=== PATIENT | female | born 1985 | race African-American/Black ===

== ENCOUNTER 2016-07-11 10:28 | Emergency (ER) | payer OTHER ==
--- NOTE | 2016-07-11 12:27 | EDDOCDS ---
Physician Documentation [facility] Name: Leonard Rodriguez Age: 31 yrs Sex: Female : 1985 Arrival Date: 07/11/2016 Time: 10:28 Bed TR3 Private MD: Amy [facility] [place] Disposition: 07/11/16 12:10 Discharged to Home/Self Care. Impression: Labyrinthitis, Elevated blood-pressure reading, without diagnosis of hypertension. - Condition is Stable. - Discharge Instructions: Labyrinthitis, Rqwn-tg-Elvt, Hypertension During , Ztma-ru-Ehmj. - Medication Reconciliation, Local Pharmacy Hours form. - Follow up: Thomas Cespedes, OB; When: Call to arrange an appointment; Reason: Further diagnostic work-up, Recheck today's complaints, Continuance of care. - Problem is new. - Symptoms are unchanged. Historical: - Allergies: No known drug Allergies; - Home Meds: 1. Oral 1 tablet daily 2. Prilosec Unknown Oral once daily as needed - PMHx: Hypertension; - PSHx: left knee repair; - Social history: Smoking status: Patient states was never smoker of tobacco. No barriers to communication noted, The patient speaks fluent Vietnamese. - Family history: Not pertinent. - : The pt / caregiver states he / she is not on anticoagulants. Home medication list is obtained from the patient. - Exposure Risk Screening:: None identified. 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 3 in. (160.02 cm) (R); 11:28 BP 144 / 94 (man/); dwg 12:14 BP 139 / 90 (man/); Pulse 77; Resp 18; Temp 98.9(TE); Pulse Ox 98% on R/A; Pain 5/10; mdr 10:30 Body Mass Index 33.66 (86.18 kg, 160.02 cm) elp MDM: 11:02 Recheck B/P ordered. btw 11:51 Financial registration complete. lg Signatures: Molly Espinosa RN RN Latha Clark RN RN kpj Ganter, LoriLee, Julien Reg lg Trever Isabel PA PA btw MTDD
--- NOTE | 2016-07-11 12:27 | EDDOCDS ---
Nurse's Notes [facility] Name: Leonard Rodriguez Age: 31 yrs Sex: Female : 1985 Arrival Date: 07/11/2016 Time: 10:28 Bed TR3 Private MD: [place] [facility] [place]: Labyrinthitis;Elevated blood-pressure reading, without diagnosis of hypertension Presentation: 07/11 10:42 Presenting complaint: Patient states: she saw her medic this am for not feeling good - kcs had a nose bleed and her BP was high - now has a headache and feels dizzy. 14 weeks . Adult Sepsis Screening: The patient does not have new or worsening altered mentation. Patient's respiratory rate is less than 22. Systolic blood pressure is greater than 100. Patient has a qSOFA score of 0- Negative Sepsis Screen. Suicide/Homicide risk assessment- the patient denies having any suicidal and/or homicidal ideations and does not present with any other emotional, behavioral or mental health complaints. 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 Transition of care: patient was not received from another setting of care. 10:42 Acuity: KOMAL Level 3 kcs 10:42 Method Of Arrival: Walkin/Carried/Asstd kcs Triage Assessment: 10:44 General: Appears uncomfortable, well developed, well nourished, well groomed, Behavior kcs is cooperative, pleasant. Pain: Location: entire head Pain currently is 5 out of 10 on a pain scale. HIV screening NA for this visit active duty . Neurological: Level of Consciousness is awake, alert. Respiratory: Airway is patent Respiratory effort is even, unlabored, Respiratory pattern is regular, symmetrical. Derm: Skin is intact, is healthy with good turgor, Skin is dry, Skin is black. CLINICAL REHABILITATION LIAISON: 10:44 3, Full Term 2, Premature 0, 0, Living 2, LMP 04/03/2016 kcs Historical: - Allergies: No known drug Allergies; - Home Meds: 1. Oral 1 tablet daily 2. Prilosec Unknown Oral once daily as needed - PMHx: Hypertension; - PSHx: left knee repair; - Social history: Smoking status: Patient states was never smoker of tobacco. No barriers to communication noted, The patient speaks fluent Ivorian. - Family history: Not pertinent. - : The pt / caregiver states he / she is not on anticoagulants. Home medication list is obtained from the patient. - Exposure Risk Screening:: None identified. Screenin:23 Screening information is obtained from the patient. Fall risk: No risks identified. kpj Assistance ADL's: requires no assistance with activities of daily living. Abuse/DV Screen: The patient / caregiver reports he/she is: not in a situation that causes fear, pain or injury. Nutritional screening: No deficits noted. Advance Directives: Currently, there is no health care proxy. There is no active DNR order. There is no living will. There is no Power of Civil Engineering Professor. Advance directive information has not previously been placed in an [facility] medical record. Further advance directive information is declined. home support is adequate. Assessment: 12:23 General: Appears in no apparent distress, well nourished, well groomed, Behavior is kpj appropriate for age, pleasant. Pain: Denies pain. Neurological: Level of Consciousness is awake, alert, Oriented to person, place, time, Reports headache. EENT: Reports nasal congestion. Cardiovascular: Chest pain is denied. Respiratory: Airway is patent Respiratory effort is even, unlabored, Respiratory pattern is regular, symmetrical. GI: No deficits noted. : Denies cramping discharge, pain vaginal bleeding. Derm: Skin is pink, warm & dry. Vital Signs: 10:30 BP 152 / 90; Pulse 91; Resp 18; Temp 97.0(O); Pulse Ox 99% on R/A; Weight 86.18 kg (R); elp Height 5 ft. 3 in. (160.02 cm) (R); 11:28 BP 144 / 94 (man/); dwg 12:14 BP 139 / 90 (man/); Pulse 77; Resp 18; Temp 98.9(TE); Pulse Ox 98% on R/A; Pain 5/10; mdr 10:30 Body Mass Index 33.66 (86.18 kg, 160.02 cm) [facility] Vitals: 10:30 Log In Time: July 11, 2016 at 10:28. elp 10:31 RN notified that patient meets Red Flag criteria. [facility] ED Course: 10:29 Patient visited by Debi Decker PCA. elp 10:29 Patient moved to Waiting elp 10:30 ROGELIO Reyes is Private Physician. elp 10:31 Patient visited by Debi Decker PCA. elp 10:31 Patient moved to Pre RCE elp 10:43 Triage Initiated kcs 11:24 Patient moved to Triage 2 mdr 11:38 Trever Isabel [facility]. btw 11:38 Jennifer Johns MD is Attending Physician. btw 11:50 Patient visited by Trever Isabel PA. btw 12:10 Thomas Cespedes OB is Referral Physician. btw 12:19 Patient visited by Shaheen Conner PCA. mdr 12:22 Patient moved to TR3 [facility] 12:23 Resting quietly. kpj 12:23 The patient / caregiver is instructed regarding the plan of care and ED course. Patient [facility] has correct armband on for positive identification. 12:23 No IV's were initiated during this patient's visit. No procedures done that require kpj assistance. Order Results: There are currently no results for this order. Outcome: 12:10 Discharge ordered by Provider. btw 12:23 Discharge Assessment: Patient awake, alert and oriented x 3. No cognitive and/or kpj functional deficits noted. Patient verbalized understanding of disposition instructions. patient administered narcotics - no. The following High Risk Discharge criteria are identified: None. Discharged to home ambulatory, with significant other. Condition: stable. Discharge instructions given to patient, Instructed on discharge instructions, follow up and referral plans. diet, Demonstrated understanding of instructions, Pt was receptive of discharge instructions/ teaching. No special radiology studies were completed. Property sent home with patient. 12:26 Patient left the ED. [facility] Signatures: Molly Espinosa RN RN kcs Greene, Daniel, RN RN dwg Jobson, Karen, RN RN [facility] Trever Isabel PA PA btw Debi Decker PCA SUPERVISOR SILVERING DEPARTMENT elp Shaheen Conner PCA PCA mdr Corrections: (The following items were deleted from the chart) 10:46 10:42 Presenting complaint: Patient states: she saw her medic this am for not feeling kcs good - had a nose bleed and her BP was high - now has a headache and feels dizzy. kcs MTDD
--- NOTE | 2016-07-13 13:27 | EDDOCDS ---
Physician Documentation [facility] Name: Leonard Rodriguez Age: 31 yrs Sex: Female : 1985 Arrival Date: 07/11/2016 Time: 10:28 Bed TR3 Private MD: Amy [facility] [place] Disposition: 07/11/16 12:10 Discharged to Home/Self Care. Impression: Labyrinthitis, Elevated blood-pressure reading, without diagnosis of hypertension. - Condition is Stable. - Discharge Instructions: Labyrinthitis, Vjft-fn-Eohl, Hypertension During , Pexd-ls-Cwfa. - Medication Reconciliation, Local Pharmacy Hours form. - Follow up: Thomas Cespedes, OB; When: Call to arrange an appointment; Reason: Further diagnostic work-up, Recheck today's complaints, Continuance of care. - Problem is new. - Symptoms are unchanged. Historical: - Allergies: No known drug Allergies; - Home Meds: 1. Oral 1 tablet daily 2. Prilosec Unknown Oral once daily as needed - PMHx: Hypertension; - PSHx: left knee repair; - Social history: Smoking status: Patient states was never smoker of tobacco. No barriers to communication noted, The patient speaks fluent Welsh. - Family history: Not pertinent. - : The pt / caregiver states he / she is not on anticoagulants. Home medication list is obtained from the patient. - Exposure Risk Screening:: None identified. 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 3 in. (160.02 cm) (R); 11:28 BP 144 / 94 (man/); dwg 12:14 BP 139 / 90 (man/); Pulse 77; Resp 18; Temp 98.9(TE); Pulse Ox 98% on R/A; Pain 5/10; mdr 10:30 Body Mass Index 33.66 (86.18 kg, 160.02 cm) elp MDM: 11:02 Recheck B/P ordered. btw 11:51 Financial registration complete. lg 12:34 [facility] Payment Agreement was scanned into [employer] and attached to record. lg 15:01 T-Sheet-- Draft Copy was scanned into [employer] and attached to record. gb Signatures: Molly Espinosa RN Latha López RN RN kpj Barnhardt, Gloria, Reg Reg gb Parish Pepe, Reg Reg lg Trever Isabel PA PA btw The chart was reviewed and I authenticate all verbal orders and agree with the evaluation and treatment provided.Attachments: 12:34 [facility] Payment Agreement lg 15:01 T-Sheet-- Draft Copy gb Chart Complete MTDD
--- NOTE | 2016-07-13 13:27 | EDDOCDS ---
Physician Documentation [facility] Name: Leonard Rodriguez Age: 31 yrs Sex: Female : 1985 Arrival Date: 07/11/2016 Time: 10:28 Bed TR3 Private MD: Amy [facility] [place] Disposition: 07/11/16 12:10 Discharged to Home/Self Care. Impression: Labyrinthitis, Elevated blood-pressure reading, without diagnosis of hypertension. - Condition is Stable. - Discharge Instructions: Labyrinthitis, Suvs-ad-Alzu, Hypertension During , Twze-ln-Jjhm. - Medication Reconciliation, Local Pharmacy Hours form. - Follow up: Thomas Cespedes, OB; When: Call to arrange an appointment; Reason: Further diagnostic work-up, Recheck today's complaints, Continuance of care. - Problem is new. - Symptoms are unchanged. Historical: - Allergies: No known drug Allergies; - Home Meds: 1. Oral 1 tablet daily 2. Prilosec Unknown Oral once daily as needed - PMHx: Hypertension; - PSHx: left knee repair; - Social history: Smoking status: Patient states was never smoker of tobacco. No barriers to communication noted, The patient speaks fluent Turkmen. - Family history: Not pertinent. - : The pt / caregiver states he / she is not on anticoagulants. Home medication list is obtained from the patient. - Exposure Risk Screening:: None identified. 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 3 in. (160.02 cm) (R); 11:28 BP 144 / 94 (man/); dwg 12:14 BP 139 / 90 (man/); Pulse 77; Resp 18; Temp 98.9(TE); Pulse Ox 98% on R/A; Pain 5/10; mdr 10:30 Body Mass Index 33.66 (86.18 kg, 160.02 cm) elp MDM: 11:02 Recheck B/P ordered. btw 11:51 Financial registration complete. lg 12:34 [facility] Payment Agreement was scanned into [employer] and attached to record. lg 15:01 T-Sheet-- Draft Copy was scanned into [employer] and attached to record. gb Signatures: Molly Espinosa RN Latha López RN RN kpj Barnhardt, Gloria, Reg Reg gb Parish Pepe, Reg Reg lg Trever Isabel PA PA btw The chart was reviewed and I authenticate all verbal orders and agree with the evaluation and treatment provided.Attachments: 12:34 [facility] Payment Agreement lg 15:01 T-Sheet-- Draft Copy gb Chart Complete MTDD
--- NOTE | 2016-07-13 13:27 | EDDOCDS ---
Nurse's Notes [facility] Name: Leonard Rodriguez Age: 31 yrs Sex: Female : 1985 Arrival Date: 07/11/2016 Time: 10:28 Bed TR3 Private MD: Amy [facility] [place] Diagnosis: Labyrinthitis;Elevated blood-pressure reading, without diagnosis of hypertension Presentation: 07/11 10:42 Presenting complaint: Patient states: she saw her medic this am for not feeling good - kcs had a nose bleed and her BP was high - now has a headache and feels dizzy. 14 weeks . Adult Sepsis Screening: The patient does not have new or worsening altered mentation. Patient's respiratory rate is less than 22. Systolic blood pressure is greater than 100. Patient has a qSOFA score of 0- Negative Sepsis Screen. Suicide/Homicide risk assessment- the patient denies having any suicidal and/or homicidal ideations and does not present with any other emotional, behavioral or mental health complaints. 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 Transition of care: patient was not received from another setting of care. 10:42 Acuity: KOMAL Level 3 kcs 10:42 Method Of Arrival: Walkin/Carried/Asstd kcs Triage Assessment: 10:44 General: Appears uncomfortable, well developed, well nourished, well groomed, Behavior kcs is cooperative, pleasant. Pain: Location: entire head Pain currently is 5 out of 10 on a pain scale. HIV screening NA for this visit active duty . Neurological: Level of Consciousness is awake, alert. Respiratory: Airway is patent Respiratory effort is even, unlabored, Respiratory pattern is regular, symmetrical. Derm: Skin is intact, is healthy with good turgor, Skin is dry, Skin is black. 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 Oral 1 tablet daily 2. Prilosec Unknown Oral once daily as needed - PMHx: Hypertension; - PSHx: left knee repair; - Social history: Smoking status: Patient states was never smoker of tobacco. No barriers to communication noted, The patient speaks fluent Kazakh. - Family history: Not pertinent. - : The pt / caregiver states he / she is not on anticoagulants. Home medication list is obtained from the patient. - Exposure Risk Screening:: None identified. Screenin:23 Screening information is obtained from the patient. Fall risk: No risks identified. kpj Assistance ADL's: requires no assistance with activities of daily living. Abuse/DV Screen: The patient / caregiver reports he/she is: not in a situation that causes fear, pain or injury. Nutritional screening: No deficits noted. Advance Directives: Currently, there is no health care proxy. There is no active DNR order. There is no living will. There is no Power of Bad Credit Collector. Advance directive information has not previously been placed in an [facility] medical record. Further advance directive information is declined. home support is adequate. Assessment: 12:23 General: Appears in no apparent distress, well nourished, well groomed, Behavior is kpj appropriate for age, pleasant. Pain: Denies pain. Neurological: Level of Consciousness is awake, alert, Oriented to person, place, time, Reports headache. EENT: Reports nasal congestion. Cardiovascular: Chest pain is denied. Respiratory: Airway is patent Respiratory effort is even, unlabored, Respiratory pattern is regular, symmetrical. GI: No deficits noted. : Denies cramping discharge, pain vaginal bleeding. Derm: Skin is pink, warm & dry. Vital Signs: 10:30 BP 152 / 90; Pulse 91; Resp 18; Temp 97.0(O); Pulse Ox 99% on R/A; Weight 86.18 kg (R); elp Height 5 ft. 3 in. (160.02 cm) (R); 11:28 BP 144 / 94 (man/); dwg 12:14 BP 139 / 90 (man/); Pulse 77; Resp 18; Temp 98.9(TE); Pulse Ox 98% on R/A; Pain 5/10; mdr 10:30 Body Mass Index 33.66 (86.18 kg, 160.02 cm) [facility] Vitals: 10:30 Log In Time: July 11, 2016 at 10:28. elp 10:31 RN notified that patient meets Red Flag criteria. [facility] ED Course: 10:29 Patient visited by Debi Decker PCA. elp 10:29 Patient moved to Waiting elp 10:30 ROGELIO Reyes is Private Physician. elp 10:31 Patient visited by Debi Decker PCA. elp 10:31 Patient moved to Pre RCE elp 10:43 Triage Initiated kcs 11:24 Patient moved to Triage 2 mdr 11:38 Trever Isabel PA is PHCP. btw 11:38 Jennifer Johns MD is Attending Physician. btw 11:50 Patient visited by Trever Isabel PA. btw 12:10 Thomas Cespedes OB is Referral Physician. btw 12:19 Patient visited by Shaheen Conner PCA. mdr 12:22 Patient moved to TR3 kpj 12:23 Resting quietly. kpj 12:23 The patient / caregiver is instructed regarding the plan of care and ED course. Patient [facility] has correct armband on for positive identification. 12:23 No IV's were initiated during this patient's visit. No procedures done that require kpj assistance. 12:28 Patient name changed from Trinise\S\\S\Michael\S\ to Trinise\S\Shona\S\Michael. EDMS 12:34 [facility] [place] Agreement was scanned into [employer] and attached to record. lg 15:01 T-Sheet-- Draft Copy was scanned into [employer] and attached to record. gb Order Results: There are currently no results for this order. Outcome: 12:10 Discharge ordered by Provider. btw 12:23 Discharge Assessment: Patient awake, alert and oriented x 3. No cognitive and/or kpj functional deficits noted. Patient verbalized understanding of disposition instructions. patient administered narcotics - no. The following High Risk Discharge criteria are identified: None. Discharged to home ambulatory, with significant other. Condition: stable. Discharge instructions given to patient, Instructed on discharge instructions, follow up and referral plans. diet, Demonstrated understanding of instructions, Pt was receptive of discharge instructions/ teaching. No special radiology studies were completed. Property sent home with patient. 12:26 Patient left the ED. [facility] Signatures: Dispatcher [employer] EDMS Molly Espinosa RN Rosendo Babcock RN RN dwg Jobson, Karen, RN RN Karen Parks, Reg Reg gb Parish Pepe, Reg Reg lg Trever Isabel PA PA btw Debi Decker PCA ELECTRICAL AND ELECTRONIC ASSEMBLER elp Shaheen Conner, ELECTRICAL AND ELECTRONIC ASSEMBLER ELECTRICAL AND ELECTRONIC ASSEMBLER mdr Corrections: (The following items were deleted from the chart) 10:46 10:42 Presenting complaint: Patient states: she saw her medic this am for not feeling kcs good - had a nose bleed and her BP was high - now has a headache and feels dizzy. kcs Chart Complete MTDD
== END 2016-07-11 12:26 | disposition home or self-care (01) ==
LOC: M ED 10:28
DX: O16.2 Unspecified maternal hypertension, second trimester (principal); O99.89 Other specified diseases and conditions complicating pregnancy, childbirth and the puerperium; O26.892 Other specified pregnancy related conditions, second trimester; H83.09 Labyrinthitis, unspecified ear; Z79.899 Other long term (current) drug therapy; Z3A.14 14 weeks gestation of pregnancy

== ENCOUNTER → 2016-12-25 | Outpatient (CLI) | payer OTHER ==
[~2016-12-25] MED LIST: ACET50TA PO; COLA100C5 PO; IBUP-1114 PO; LABE10TAB PO; LABE20TAB GT; LABE20TAB PO; NIFE30TA66 PO; PRENTAB9 PO; ZITHTAB PO
[2016-12-25 16:01] LABS: BASO % 0.3 % (0.0-1.0); EOS # 0.1 K/mm3 (0.0-0.50); EOS % 1.7 % (0.0-3.0); LARGE UNSTAINED CELL # 0.2 K/mm3 (0.0-0.4); LARGE UNSTAINED CELL % 2.6 % (0.0-4.0); LYMPH # 1.6 K/mm3 (1.5-4.5); LYMPH % 21.2 % (24.0-44.0); MEAN CORPUSCULAR HEMOGLOBIN 26.3 pg (27.0-33.0); MEAN CORPUSCULAR VOLUME 82.2 fl (80.0-96.0); MONO # 0.6 K/mm3 (0.0-0.8); MONO % 8.6 % (0.0-5.0); NEUTROPHILS # 4.3 K/mm3 (1.8-7.7); NEUTROPHILS % 65.6 % (36.0-66.0); PLATELET COUNT, AUTOMATED 240 k/mm3 (150-450); RED CELL DISTRIBUTION WIDTH 15.6 % (11.5-14.5); WHITE BLOOD COUNT 6.6 K/mm3 (4.0-10.0)
[2016-12-25 16:26] LABS: ALBUMIN 2.6 GM/DL (3.2-5.2); ALBUMIN/GLOBULIN RATIO 0.74 (1.00-1.93); ALKALINE PHOSPHATASE 140 U/L (45-117); ALT/SGPT 14 U/L (12-78); ANION GAP 7 MEQ/L (8-16); AST/SGOT 17 U/L (15-37); BILIRUBIN,TOTAL 0.2 MG/DL (0.2-1.0); BLOOD UREA NITROGEN 6 MG/DL (7-18); CALCIUM LEVEL 8.8 MG/DL (8.5-10.1); CARBON DIOXIDE LEVEL 23 MEQ/L (21-32); CHLORIDE LEVEL 103 MEQ/L (98-107); CREATININE FOR GFR 0.69 MG/DL (0.55-1.02); GLOMERULAR FILTRATION RATE > 60.0 (>60); GLUCOSE, FASTING 76 MG/DL (70-105); SODIUM LEVEL 133 MEQ/L (136-145); TOTAL PROTEIN 6.1 GM/DL (6.4-8.2); URIC ACID 3.9 MG/DL (2.6-6.0)
== END ==
LOC: M LAB 15:14
PROVIDERS: ATTEND Nurse Practitioner Women's Health
DX: Z34.83 Encounter for supervision of other normal pregnancy, third trimester (principal)

== ENCOUNTER → 2016-12-26 | Outpatient (CLI) | payer OTHER ==
--- NOTE | 2016-12-26 16:20 | REP ---
Obstetric ultrasound for well being: There is a single intrauterine gestation in a vertex presentation. The heart rate is 128 beats per minute. Cervix is 4.7 cm length. Based on LMP gestational age is 38 weeks 1 day with an JESSE of 01/08/2017. The amniotic fluid volume subjectively is normal. The amniotic fluid index is 11.6 (7.3 - 23.8). biophysical profile: Breathing 2 Movement 2 Toe 2 Amniotic fluid volume 2 Total 01/07 Umbilical artery Doppler assessment: SD ratio 2.28 Resistive index of 0.56 Diastolic flow velocity 27.7 cm/sec. These values are within their normal ranges. Signed by Rosendo Melton MD 12/26/2016 04:11 P
== END ==
LOC: M RAD 15:32
PROVIDERS: ATTEND Obstetrics & Gynecology
DX: Z36 Encounter for antenatal screening of mother (principal); Z3A.38 38 weeks gestation of pregnancy

== ENCOUNTER 2016-12-29 09:04 | Inpatient (IN) | payer OTHER ==
[2016-12-29] VITALS (47 sets, daily range): BP systolic 114–181; BP diastolic 60–103
[~2016-12-29] VITALS: Ht 157.5 cm; Wt 93.0 kg
[2016-12-29] MEDS ORDERED: PRENTAB9 PO (09:16)
[2016-12-29 10:49] LABS: MEAN CORPUSCULAR HEMOGLOBIN 26.2 pg (27.0-33.0); MEAN CORPUSCULAR VOLUME 82.1 fl (80.0-96.0); RED CELL DISTRIBUTION WIDTH 15.6 % (11.5-14.5); WHITE BLOOD COUNT 5.6 K/mm3 (4.0-10.0)
[2016-12-29] MEDS ORDERED: OXYTOCIN DRIP 30 UNITS in APPROPRIATE DILUENT 1 EA IV SCH (11:00)
[2016-12-29] MEDS ORDERED: LR 1,000 ML IV SCH (11:00)
[2016-12-29 11:10] LABS: ALBUMIN 2.6 GM/DL (3.2-5.2); ALBUMIN/GLOBULIN RATIO 0.74 (1.00-1.93); ALKALINE PHOSPHATASE 145 U/L (45-117); ALT/SGPT 17 U/L (12-78); ANION GAP 11 MEQ/L (8-16); AST/SGOT 19 U/L (15-37); BILIRUBIN,TOTAL 0.2 MG/DL (0.2-1.0); BLOOD UREA NITROGEN 4 MG/DL (7-18); CALCIUM LEVEL 8.9 MG/DL (8.5-10.1); CARBON DIOXIDE LEVEL 21 MEQ/L (21-32); CHLORIDE LEVEL 108 MEQ/L (98-107); CREATININE FOR GFR 0.64 MG/DL (0.55-1.02); GLOMERULAR FILTRATION RATE > 60.0 (>60); GLUCOSE, FASTING 81 MG/DL (70-105); POTASSIUM SERUM 3.6 MEQ/L (3.5-5.1); SODIUM LEVEL 140 MEQ/L (136-145); TOTAL PROTEIN 6.1 GM/DL (6.4-8.2); URIC ACID 3.9 MG/DL (2.6-6.0)
[2016-12-29] MEDS: LR 1,000 ML IV SCH (16:15)
[2016-12-29] MEDS ORDERED: LABETALOL HCL 100 MG/20 ML VIAL IV STA (18:01)
[2016-12-29] MEDS ORDERED: MAGNESIUM *L&D* 4 GM/100 ML BAG (40MG/ML) (J3475) As Ordered ONE (18:09)
[2016-12-29] MEDS ORDERED: MAGNESIUM SULFATE 4% INJ 20GM/500ML (40MG/ML) (J3475) As Ordered ONE (18:10)
[2016-12-29] MEDS ORDERED: MAG Sulf (L&D) 4 GM/100 ML 4 GM in APPROPRIATE DILUENT 1 EA IV ONE (18:15)
[2016-12-29] MEDS: MAG Sulf (OBGYN) 20GM/500ML 20,000 MG in APPROPRIATE DILUENT 1 EA IV SCH (18:55)
[2016-12-29] MEDS ORDERED: FAMOTIDINE 20 MG TAB PO ONE (21:45)
[2016-12-29] MEDS ORDERED: BICITRA 30ML SOLN UDC PO ONE (21:45)
[2016-12-29] MEDS ORDERED: BUTORPHANOL 2 MG/ML INJ (J0595) IV ONE (21:45)
[2016-12-29] MEDS ORDERED: PROMETHAZINE INJ 25 MG/ML VIAL (J2550) IM ONE (21:45)
[2016-12-30] VITALS (86 sets, daily range): BP systolic 93–211; BP diastolic 51–106
[2016-12-30] MEDS: LR 1,000 ML IV SCH ×3 (00:15→16:15)
[2016-12-30] MEDS ORDERED: FENTANYL 2MCG/ML ROPIVACAINE 0.2% IN 0.9% NACL 200ML IVBAG As Ordered ONE ×2 (00:55→00:58)
[2016-12-30] MEDS ORDERED: EPIDURAL COMMENT XX SCH (02:15)
[2016-12-30] MEDS ORDERED: LACTATED RINGER'S 1000 ML IV PRN (02:15)
[2016-12-30] MEDS ORDERED: EPIDURAL/PCA KEYS XX PRN (02:15)
[2016-12-30] MEDS: FENTANYL/ROPIVACAINE/NACL BAG 200 ML EPIDURAL SCH ×2 (02:15→22:15)
[2016-12-30] MEDS ORDERED: REFRIGERATOR IV KEYS XX PRN (02:15)
[2016-12-30] MEDS ORDERED: ONDANSETRON 4MG/2ML VIAL (J2405) IV PRN (02:15)
[2016-12-30] MEDS ORDERED: ePHEDrine SULFATE 25 MG/5 ML(5MG/ML) SYRINGE IV PRN (02:15)
[2016-12-30] MEDS ORDERED: diphenhydrAMINE INJ 50MG/ML VIAL (J1200) IV PRN (02:15)
[2016-12-30] MEDS ORDERED: NALOXONE INJ 0.4 MG/1 ML VIAL (J2310) IV PRN (02:15)
[2016-12-30] MEDS: MAG Sulf (OBGYN) 20GM/500ML 20,000 MG in APPROPRIATE DILUENT 1 EA IV SCH ×2 (04:40→14:40)
[2016-12-30 13:38] LABS: MEAN CORPUSCULAR HEMOGLOBIN 26.4 pg (27.0-33.0); MEAN CORPUSCULAR HGB CONC 31.4 g/dl (32.0-36.5); RED CELL DISTRIBUTION WIDTH 15.8 % (11.5-14.5)
[2016-12-30 14:09] LABS: ALBUMIN 2.8 GM/DL (3.2-5.2); ALBUMIN/GLOBULIN RATIO 0.61 (1.00-1.93); BILIRUBIN,TOTAL 0.4 MG/DL (0.2-1.0); CALCIUM LEVEL 9.2 MG/DL (8.5-10.1); CREATININE FOR GFR 1.48 MG/DL (0.55-1.02); GLOMERULAR FILTRATION RATE 52.7 (>60); TOTAL PROTEIN 7.4 GM/DL (6.4-8.2)
[2016-12-30] MEDS ORDERED: OXYTOCIN 30 UNITS IN 0.9% NaCl 500ML IV BAG (J2590) As Ordered ONE (19:43)
[2016-12-30] MEDS ORDERED: ACETAMINOPHEN 500 MG TAB As Ordered ONE (19:59)
[2016-12-30] MEDS ORDERED: IBUPROFEN 800 MG TAB As Ordered ONE (19:59)
[2016-12-31] VITALS (12 sets, daily range): BP systolic 127–179; BP diastolic 65–95
[2016-12-31] MEDS: LR 1,000 ML IV SCH (00:15)
[2016-12-31] MEDS: MAG Sulf (OBGYN) 20GM/500ML 20,000 MG in APPROPRIATE DILUENT 1 EA IV SCH (00:40)
[2016-12-31] MEDS ORDERED: METOCLOPRAMIDE INJ 10MG/2ML VIAL (J2765) IV PRN (07:30)
[2016-12-31] MEDS ORDERED: DOCUSATE SODIUM 100 MG CAP PO PRN (07:30)
[2016-12-31] MEDS ORDERED: MEASLES,MUMPS,RUBELLA VACCINE INJ (MMR-II) (90707) SC SCH (07:30)
[2016-12-31] MEDS ORDERED: ACETAMINOPHEN 500 MG TAB PO PRN (07:30)
[2016-12-31] MEDS ORDERED: RHOGAM 300 MCG (1500 IU) INJ (J2790) IM SCH (07:30)
[2016-12-31] MEDS ORDERED: DIBUCAINE 1% OINTMENT 30GM TOP PRN (07:30)
[2016-12-31] MEDS ORDERED: IBUPROFEN 800 MG TAB PO PRN (07:30)
[2016-12-31] MEDS ORDERED: ONDANSETRON 4MG/2ML VIAL (J2405) IV PRN (07:30)
[2016-12-31] MEDS: PRENATAL VITAMINS CHEWABLE TABLET PO SCH (09:00)
[2016-12-31] MEDS: LABETALOL 100 MG TAB PO SCH (20:54)
[2017-01-01 01:30] VITALS: BP 113/59
[2017-01-01 06:36] VITALS: BP 132/83
[2017-01-01 07:32] LABS: ALBUMIN 2.1 GM/DL (3.2-5.2); ALBUMIN/GLOBULIN RATIO 0.58 (1.00-1.93); ALKALINE PHOSPHATASE 116 U/L (45-117); ALT/SGPT 15 U/L (12-78); ANION GAP 9 MEQ/L (8-16); AST/SGOT 17 U/L (15-37); BILIRUBIN,TOTAL 0.2 MG/DL (0.2-1.0); BLOOD UREA NITROGEN 7 MG/DL (7-18); CALCIUM LEVEL 8.4 MG/DL (8.5-10.1); CARBON DIOXIDE LEVEL 25 MEQ/L (21-32); CHLORIDE LEVEL 108 MEQ/L (98-107); CREATININE FOR GFR 1.05 MG/DL (0.55-1.02); GLOMERULAR FILTRATION RATE > 60.0 (>60); GLUCOSE, FASTING 92 MG/DL (70-105); MAGNESIUM LEVEL 3.6 MG/DL (1.8-2.4); POTASSIUM SERUM 3.6 MEQ/L (3.5-5.1); SODIUM LEVEL 142 MEQ/L (136-145); TOTAL PROTEIN 5.7 GM/DL (6.4-8.2)
[2017-01-01 07:33] LABS: MEAN CORPUSCULAR HEMOGLOBIN 26.7 pg (27.0-33.0); MEAN CORPUSCULAR HGB CONC 31.9 g/dl (32.0-36.5); MEAN CORPUSCULAR VOLUME 83.7 fl (80.0-96.0); RED CELL DISTRIBUTION WIDTH 16.2 % (11.5-14.5); WHITE BLOOD COUNT 10.6 K/mm3 (4.0-10.0)
[2017-01-01] MEDS: PRENATAL VITAMINS CHEWABLE TABLET PO SCH (08:14)
[2017-01-01] MEDS: LABETALOL 100 MG TAB PO SCH (08:22)
--- NOTE | 2017-01-01 08:59 | IPN ---
DATE: 12/31/2016 This lady is 31-year-old, 3, para 2, at 38+ 5 weeks gestation was going undergoing induction of labor for chronic hypertension with superimposed pre E and severe features. She was on magnesium sulfate and labetalol IV, and she had a spontaneous vaginal delivery precipitously of a male weighing 3016 grams, score of 8 and 9 at one and five minutes respectively. Her uterus contracted well under Pitocin and the Pitocin was running in usual fashion, and there are no lacerations and she was hemodynamically stable. Post delivery, she had elevated blood pressures with lower abdominal cramps and discomfort, and she had some severe range blood pressures and was given continuous IV magnesium sulfate over 24 hours and had two IV labetalol for severe range blood pressures. The 24 hours of low IV magnesium is over. She did have a significant elevation in her magnesium levels in which her magnesium level had peaked at 11 and is slowly coming down, and it was 8.1. Her hemoglobin 11.5, hematocrit 36.8 and platelets are 287. Over the last 24 hours, while running on magnesium, her intake/output has been intake of 60, 105 and output of 98, 550, so a balance of -3745. She is diuresing extremely well at the present time and she has not had a severe range blood pressure since 12/30/2016. Our plan of management is to discontinue the magnesium level, repeat a magnesium level, CBC and CMP. Discontinue the Arana catheter. Saline lock the IV as she is drinking well and maintain labetalol on an as needed basis if parameters being blood pressure 160/102, readings 15 minutes apart. On examination, presently she is alert, awake. She has normal reflexes. She has no edema. She has no evidence of right upper quadrant pain. No visual disturbances. Uterus is 2 below. Lochia is moderate and she is anxious to start breast-feeding. In summary, we have a patient with severe pre E features, off magnesium, level now coming down and our only concern is monitoring her blood pressure medications.
[2017-01-01 10:03] VITALS: BP 136/74
[2017-01-01] MEDS ORDERED: ACET50TA PO (13:46)
[2017-01-01] MEDS ORDERED: IBUP-1114 PO (13:46)
[2017-01-01] MEDS ORDERED: LABE10TAB PO (13:46)
[2017-01-01] MEDS ORDERED: COLA100C5 PO (13:46)
--- NOTE | 2017-01-01 22:28 | IPN ---
DATE: 01/01/2017 This lady is a 31-year-old, 2, para 3 who is at 38 and 4 weeks of gestation. History of induction for chronic hypertension and developed preeclampsia blood pressures. She had a spontaneous vaginal delivery of a live male , of 8 and 9 at one and five minutes respectively. Weight 3016 grams. Uneventful vaginal trauma and when post delivery she had a escalation of her blood pressures where she had some severe ranged blood pressure, she was started on mag sulfate and ran over 24 hours. She had had one or two doses of labetalol IV. Over the course of 24 hours her Arana catheter was discontinued. She was diuresing well. Reflexes were normal. She had no signs of preeclampsia although her blood pressure remained labile. She had one episodic blood pressure of 179/94, 165/95 and was given by mouth (p.o.) labetalol and since 2140 hours on December 31 her blood pressures have been relatively normal. On examination today, her reflexes are normal. No edema. No right upper quadrant pain. No visual disturbances. No light irritability. She is breast-feeding, mobilize bowel movements and voiding well. Still diuresing. We had reordered for CBC, electrolytes, CMP and magnesium level to determine whether her magnesium level was significantly lower than it was before; the last one was 8.1. Unfortunately, lab work is not back or available yet and our discharge is pending the evaluation of her lab work. Otherwise, we have a lady who has had significant chronic hypertension (CHTN) with overlays of preeclampsia treated with 24 hours of magnesium sulfate and several doses of labetalol. The patient will be discharged following reevaluation of her lab work and her blood pressure.
== END 2017-01-01 14:50 | disposition home or self-care (01) | DRG 774 ==
LOC: M LDI 09:04 → M OBS 12-30 22:14
PROVIDERS: ADMIT Obstetrics & Gynecology; ATTEND Obstetrics & Gynecology
PROC: 3E033VJ Introduction of Other Hormone into Peripheral Vein, Percutaneous Approach (ICD-10-PCS; 2016-12-29)
PROC: 10E0XZZ Delivery of Products of Conception, External Approach (ICD-10-PCS; principal; 2016-12-30)
DX: O10.02 Pre-existing essential hypertension complicating childbirth (principal); Z3A.38 38 weeks gestation of pregnancy; K21.9 Gastro-esophageal reflux disease without esophagitis; D64.9 Anemia, unspecified; Z79.899 Other long term (current) drug therapy; Z37.0 Single live birth; O14.14 Severe pre-eclampsia complicating childbirth; O10.03 Pre-existing essential hypertension complicating the puerperium; O99.02 Anemia complicating childbirth; O99.62 Diseases of the digestive system complicating childbirth

== ENCOUNTER 2017-01-03 14:26 | Emergency (ER) | payer OTHER ==
[~2017-01-03] VITALS: Ht 157.5 cm; Wt 81.8 kg
[~2017-01-03 14:26] MED LIST changes: -LABE20TAB GT; -LABE20TAB PO; -NIFE30TA66 PO; -ZITHTAB PO
[2017-01-03] MEDS ORDERED: LABETALOL HCL 100 MG/20 ML VIAL IV STA (15:55)
[2017-01-03] MEDS ORDERED: LABETALOL 100 MG TAB PO ONE (16:00)
[2017-01-03 16:38] VITALS: BP 171/81
[2017-01-03 16:40] LABS: BASO % 0.2 % (0.0-1.0); EOS # 0.2 K/mm3 (0.0-0.50); EOS % 2.9 % (0.0-3.0); LARGE UNSTAINED CELL # 0.1 K/mm3 (0.0-0.4); LARGE UNSTAINED CELL % 1.4 % (0.0-4.0); LYMPH # 1.8 K/mm3 (1.5-4.5); LYMPH % 19.5 % (24.0-44.0); MEAN CORPUSCULAR HEMOGLOBIN 26.1 pg (27.0-33.0); MEAN CORPUSCULAR HGB CONC 31.9 g/dl (32.0-36.5); MEAN CORPUSCULAR VOLUME 81.7 fl (80.0-96.0); MONO # 0.6 K/mm3 (0.0-0.8); MONO % 6.5 % (0.0-5.0); NEUTROPHILS # 5.9 K/mm3 (1.8-7.7); NEUTROPHILS % 69.6 % (36.0-66.0); PLATELET COUNT, AUTOMATED 260 k/mm3 (150-450); RED CELL DISTRIBUTION WIDTH 15.7 % (11.5-14.5); WHITE BLOOD COUNT 8.5 K/mm3 (4.0-10.0)
--- NOTE | 2017-01-03 16:46 | REP ---
REASON: Dyspnea and cough. COMPARISON: 01/20/2016. There is a new patchy opacity in the right lower lobe with blunting of the right CP angle. There is mild left CP angle blunting. There is mild thickening of the fissures. Cardiomediastinal silhouette is unchanged. There is a mild left ventricular configuration to the heart which is borderline. IMPRESSION: Findings, as described above, are suggestive of right lower lobe pneumonia with a small right pleural effusion. There is also evidence to suggest either subsegmental atelectatic change or small left pleural effusion which could be secondary to mild edema. The edema pattern could be asymmetric. This needs to be correlated clinically with appropriate followup. Signed by Santiago Sanders DO 01/03/2017 04:58 P
[2017-01-03] MEDS ORDERED: AZITHROMYCIN 250 MG TAB PO ONE (17:00)
[2017-01-03] MEDS ORDERED: ALBUTEROL 90 MCG/ACT 8GM HFA INHALER INH ONE (17:00)
[2017-01-03 18:11] LABS: ALBUMIN 2.6 GM/DL (3.2-5.2); ALBUMIN/GLOBULIN RATIO 0.68 (1.00-1.93); ALKALINE PHOSPHATASE 130 U/L (45-117); ALT/SGPT 22 U/L (12-78); ANION GAP 10 MEQ/L (8-16); AST/SGOT 22 U/L (15-37); BILIRUBIN,DIRECT < 0.1 MG/DL (0.0-0.2); BILIRUBIN,TOTAL 0.3 MG/DL (0.2-1.0); BLOOD UREA NITROGEN 10 MG/DL (7-18); CALCIUM LEVEL 8.6 MG/DL (8.5-10.1); CARBON DIOXIDE LEVEL 27 MEQ/L (21-32); CHLORIDE LEVEL 105 MEQ/L (98-107); CREATININE FOR GFR 0.76 MG/DL (0.55-1.02); GLOMERULAR FILTRATION RATE > 60.0 (>60); GLUCOSE, FASTING 75 MG/DL (70-105); POTASSIUM SERUM 3.9 MEQ/L (3.5-5.1); SODIUM LEVEL 142 MEQ/L (136-145); TOTAL PROTEIN 6.4 GM/DL (6.4-8.2)
[2017-01-03 18:33] VITALS: BP 167/91
[2017-01-03] MEDS ORDERED: LABE20TAB PO (18:44)
[2017-01-03] MEDS ORDERED: ZITHTAB PO (18:44)
--- NOTE | 2017-01-04 09:59 | ECGEPIP ---
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 RBBB Electronically Signed On 01-04-2017 9:59:01 EDT by Santana Pan
== END 2017-01-03 18:52 | disposition home or self-care (01) ==
LOC: M ED 14:26
DX: J18.9 Pneumonia, unspecified organism (principal); I10 Essential (primary) hypertension

== ENCOUNTER 2017-02-27 15:03 | Emergency (ER) | payer OTHER ==
[~2017-02-27] VITALS: Ht 157.5 cm; Wt 81.8 kg
[2017-02-27 15:03] VITALS: BP 178/102
[~2017-02-27 15:03] MED LIST changes: +LABE20TAB PO; +ZITHTAB PO
[2017-02-27] MEDS ORDERED: NIFE30TA66 PO (15:11)
[2017-02-27 17:28] LABS: ANION GAP 7 MEQ/L (8-16); BLOOD UREA NITROGEN 15 MG/DL (7-18); CALCIUM LEVEL 9.6 MG/DL (8.5-10.1); CARBON DIOXIDE LEVEL 28 MEQ/L (21-32); CHLORIDE LEVEL 104 MEQ/L (98-107); CREATININE FOR GFR 0.74 MG/DL (0.55-1.02); GLOMERULAR FILTRATION RATE > 60.0 (>60); GLUCOSE, FASTING 102 MG/DL (70-105); POTASSIUM SERUM 3.8 MEQ/L (3.5-5.1); SODIUM LEVEL 139 MEQ/L (136-145)
[2017-02-27 17:37] LABS: MEAN CORPUSCULAR HEMOGLOBIN 25.3 pg (27.0-33.0); MEAN CORPUSCULAR HGB CONC 31.6 g/dl (32.0-36.5); RED CELL DISTRIBUTION WIDTH 16.2 % (11.5-14.5); WHITE BLOOD COUNT 6.1 10^3/uL (4.0-10.0)
[2017-02-27] MEDS ORDERED: LABE20TAB GT (18:00)
== END 2017-02-27 18:13 | disposition home or self-care (01) ==
LOC: M ED 15:03
DX: I10 Essential (primary) hypertension (principal)

== ENCOUNTER 2017-11-21 09:16 | Emergency (ER) | payer OTHER | END 2017-11-21 09:58 | disposition home or self-care (01) | LOC: M ED 09:16 | DX: T20.19XA Burn of first degree of multiple sites of head, face, and neck, initial encounter (principal); T21.11XA Burn of first degree of chest wall, initial encounter; T31.0 Burns involving less than 10% of body surface; X11.8XXA Contact with other hot tap-water, initial encounter; Y92.9 Unspecified place or not applicable; Y93.9 Activity, unspecified; Y99.9 Unspecified external cause status; I10 Essential (primary) hypertension; Z79.899 Other long term (current) drug therapy | CPT/HCPCS: 99282 ==